=== PATIENT | male | born 1995 | race Caucasian/White ===

== ENCOUNTER 2017-10-19 20:35 | Emergency (ER) | payer OTHER, BC ==
[2017-10-19] MEDS: IBUPROFEN 800 MG TAB PO (21:12)
[2017-10-19] MEDS: ACETAMINOPHEN 500 MG TAB PO (21:12)
[2017-10-19 21:46] LABS: ADD UMIC YES; UR ASCORBIC ACID NEGATIVE (NEGATIVE); UR BILIRUBIN (Dip) NEGATIVE (NEGATIVE); UR BLOOD (Dip) 2+ mg/dL (NEGATIVE); UR CLARITY CLEAR (CLEAR); UR COLOR YELLOW (YELLOW); UR GLUCOSE (Dip) NEGATIVE (NEGATIVE); UR KETONES (Dip) TRACE mg/dL (NEGATIVE); UR LEUKOCYTE ESTERASE (Dip) NEGATIVE Leu/ul (NEGATIVE); UR MUCUS FEW /HPF (NONE SEEN); UR NITRITE (Dip) NEGATIVE (NEGATIVE); UR RBC 3 /HPF (0-5); UR SPECIFIC GRAVITY (Dip) 1.028 (1.003-1.030); UR TOTAL PROTEIN (Dip) NEGATIVE (NEGATIVE); UR UROBILINOGEN (Dip) NEGATIVE (NEGATIVE); UR WBC 1 /HPF (0-5)
[2017-10-19] MEDS: SOD CHLORIDE 0.9% 1,000 ML IV ×2 (22:17→22:35)
== END 2017-10-19 23:20 | disposition home or self-care (01) ==
LOC: FTE 20:35
DX: R50.9 Fever, unspecified (principal)
CPT/HCPCS: 81001; 96360; 99284-25